=== PATIENT | female | born 1940 | race Caucasian/White ===

== ENCOUNTER 2017-10-25 21:38 | Emergency (ER) | payer MEDICARE, BC ==
[~2017-10-25 21:38] MED LIST: Iopamidol 370 76% 100 ML VIAL ONE
[2017-10-25 22:37] LABS: #Basophils 0.2 thou/uL (0.0-0.2); #Eosinphils 0.3 thou/uL (0.0-0.7); #Monocytes 0.8 thou/uL (0.11-0.59); #Neutrophils 5.4 thou/uL (1.40-6.50); %Basophils 1.9 % (0.0-1.0); %Eosinophils 3.5 % (0.0-10.0); %Lymphocytes 22.9 % (21.0-51.0); %Neutrophils 62.8 % (42.0-75.0); Hemoglobin 12.6 g/dL (12.0-16.0); Mean Corpuscular HGB CONC 34.4 g/dL (32.0-36.0); Mean Corpuscular Hemoglobin 31.5 pg (27.0-31.0); Mean Corpuscular Volume 91.6 fl (81.0-99.0); Mean Platelet Volume 8.2 fL (7.4-10.4); Platelet Count 188 thou/uL (130-400); RBC Distribution Width 11.2 % (11.5-14.5); White Blood Cell (WBC) Count 8.7 thou/uL (4.8-10.8)
[2017-10-25 22:55] LABS: Anion Gap 17 mmol/L (10-20); BUN (Urea Nitrogen) 13 mg/dL (9.8-20.1); Calc. Creatinine Clearance 0 mL/min (70-130); Calcium 9.5 mg/dL (7.8-10.44); Carbon Dioxide 20 mmol/L (23-31); Chloride 108 mmol/L (98-107); Estimated GFR-MDRD 68; Glucose 100 mg/dL (83-110); Potassium 4.4 mmol/L (3.5-5.1); Sodium 141 mmol/L (136-145)
--- NOTE | 2017-10-25 22:58 | CT ---
CT OF HEAD NONCONTRAST 10/25/17 CLINICAL HISTORY: Fall with head injury. FINDINGS: The ventricular system is age appropriate in size. There is no intracranial hemorrhage, mass effect o r midline shift. Parieto-occipital scalp hematoma is present. No calvarial fracture or pneumocephalus . IMPRESSION: 1. No acute intracranial hemorrhage or mass effect. 2. Posterior scalp hematoma. POS: C
--- NOTE | 2017-10-25 23:48 | CT ---
CERVICAL SPINE CT NONCONTRAST 10/25/17 INDICATION: Neck injury and pain related to fall. FINDINGS: There is no evidence of acute cervical spine fracture or subluxation. The craniocervical junction is intact. There is moderate multilevel degenerative changes of the cervical spine with associated strai ghtening of the normal cervical curvature. There is trace spondylolisthesis of C2-3 level. Degenerati ve hypertrophy of C1-2 is present. Incidental note in lucencies of the occipital calvarium favoring arachnoid granulations. IMPRESSION: 1. There is no acute fracture of the cervical spine. 2. Prominent multilevel degenerative change present. 3. Multifocal incidental calvarial lucencies at the occiput favoring arachnoid granulations. POS: C
--- NOTE | 2017-10-26 07:08 | CT ---
CT ABDOMEN AND PELVIS WITH IV CONTRAST CT SCAN LUMBAR SPINE: Date: 10/25/17 HISTORY: Patient fell while walking and complains of low back pain. Patient has history of abnormalities in th e liver and pancreas on prior studies and patient also requests these areas be reevaluated. COMPARISON: CT scans of the abdomen obtained at [facility] [place] on 10/24/[address] scan of abdomen and pelvis obtained at [facility] [place] on 10/06/15. FINDINGS: There are linear areas of mild scarring at each lung base. Lung bases are otherwise clear. The previously described tiny, less than 5.0 mm, hypodense lesions within right hepatic lobe are agai n seen and stable from the prior study, as well as study in 2015, suggesting a benign finding. The ramos bcentimeter low density focus within the uncinate process of the pancreas is also again seen and stab le when compared to the prior studies, including study in 2015. This appears to represent a fat densi ty and also likely represents a benign finding given stability over this period of time. Post cholecystectomy changes are noted. Splenic granulomata are again present. There is mild scarring involving the mid portion of the right kidney. There is a stable subcentimeter hypodense lesion in the left kidney. Kidneys otherwise have a normal CT appearance. Bilateral adrenal glands and opacified bowel have a normal CT appearance. Urinary bladder is incompletely distended. Penaloza of the urinary bladder do appear mildly thickened, b ut this is probably attributable to incomplete distention. Uterus is not visualized, probably related to prior hysterectomy. There is a small to moderate amount of retained fecal material seen throughout the colon suggesting c onstipation. No free fluid or free intraperitoneal gas is seen in the abdomen or pelvis. Vascular calcifications seen in the abdominal aorta. Metallic densities are seen at the pubic symphysis with prominent degenerative changes in the pubic s ymphysis. CT LUMBAR SPINE: There are multilevel degenerative changes seen within the lower thoracic, as well as involving the adriana mbar spine, with prominent end plate degenerative changes at L1-2 and L2-3 levels, and to a lesser ex tent at the L4-5 level. There is Grade I anterolisthesis of L4 on L5 likely related to the prominent facet degenerative changes at this level. The vertebral body heights are within normal limits, and no fracture is visualized. There is right convex scoliosis of the lumbar spine. There is moderate narro wing of the central spinal canal at the L4-5 level with moderate to severe bilateral neural foraminal narrowing. IMPRESSION: 1. No acute findings are seen in the abdomen or pelvis. 2. Small hiatal hernia. 3. Stable subcentimeter hypodense lesions in the right hepatic lobe, likely related to benign findin gs given stability since 2014 and probably represent tiny hepatic cysts. 4. Stable tiny subcentimeter fat density lesion uncinate process of the pancreas, also likely relate d to benign finding given stability over this period of time. 5. Constipation. 6. Hysterectomy. 7. Multilevel degenerative changes of the lumbar spine with Grade I anterolisthesis of L4 on L5. 8. No fracture involving the lumbar spine. POS: ABIOLA
== END 2017-10-26 00:45 | disposition home or self-care (01) ==
LOC: SCSER 21:38
DX: S00.03XA Contusion of scalp, initial encounter (principal); S30.0XXA Contusion of lower back and pelvis, initial encounter; E03.9 Hypothyroidism, unspecified; K21.9 Gastro-esophageal reflux disease without esophagitis; M19.90 Unspecified osteoarthritis, unspecified site; W00.0XXA Fall on same level due to ice and snow, initial encounter; Y93.01 Activity, walking, marching and hiking
CPT/HCPCS: 70450; 72125; 74177; 80048; 85025

== ENCOUNTER 2018-01-14 11:55 | Outpatient (CLI) | payer MEDICARE, BC | END 2018-01-14 11:56 | disposition home or self-care (01) | LOC: BICMAMMO 11:55 | PROVIDERS: ATTEND Obstetrics & Gynecology | DX: Z12.31 Encounter for screening mammogram for malignant neoplasm of breast (principal) | CPT/HCPCS: 77063; 77067 ==

== ENCOUNTER 2019-01-07 14:02 | Outpatient (CLI) | payer MEDICARE, BC ==
--- NOTE | 2019-01-07 15:44 | BD ---
DEXA BONE MINERAL DENSITY STUDY: HISTORY: Osteoporosis. COMPARISON: None. FINDINGS: Lumbar Spine: BMD (g/cm2) L1 0.988 T-Score: 0.0 2.2 L2 1.161 T-Score: 1.2 3.7 L3 0.961 T-Score:-1.3 1.5 L4 1.051 T-Score:-0.1 2.6 L1-L4 1.041 T-Score:-0.1 2.5 WHO classification is normal. Femoral Neck: 0.619 T-Score:-2.1 0.1 Total Femur: 0.788 T-Score:-1.3 0.6 WHO classification osteopenia. The FRAX score is not reported as the patient has been treated for os teoporosis. Impression: Osteopenia to the left femoral neck and total left hip. The bone mineral density is spuriously eleva stacia of the lumbar spine due to degenerative changes. POS: C
== END 2019-01-07 14:03 | disposition home or self-care (01) ==
LOC: BICMAMMO 14:02
PROVIDERS: ATTEND Internal Medicine
DX: M81.0 Age-related osteoporosis without current pathological fracture (principal); M85.89 Other specified disorders of bone density and structure, multiple sites
CPT/HCPCS: 77080

== ENCOUNTER 2019-01-15 13:27 | Outpatient (CLI) | payer MEDICARE, BC ==
--- NOTE | 2019-01-15 13:51 | MMO ---
Bilateral MAMMO Bilat Screen DDI+JOSE. CLINICAL HISTORY: Patient is 78 years old and is seen for screening. The patient has no family history of breast cancer. The patient has no personal history of cancer. The patient has a history of right Excisional Biopsy in 1956 - benign, right Excisional Biopsy in 1983 - benign and left Excisional Biopsy in 1964 - benign. VIEWS: The views performed were: bilateral craniocaudal with tomosynthesis and bilateral mediolateral oblique with tomosynthesis. FILMS COMPARED: The present examination has been compared to prior imaging studies performed at [facility] on 06/03/2003, 06/03/2004, 06/16/2005, 06/19/2006, 07/18/2007, 07/21/2008, 07/22/2009, 07/25/2010, 07/28/2010, 07/25/2011, 08/06/2012, 09/11/2014, 10/06/2015, 10/24/2016 and 01/14/2018, and at [facility] on 06/06/1999, 06/16/1999, 04/30/2000 and 04/21/2002. MAMMOGRAM FINDINGS: There are scattered fibroglandular densities. There are benign appearing calcifications seen in both breasts. There are also vascular calcifications. There are no suspicious masses, suspicious calcifications, or new areas of architectural distortion. IMPRESSION: THERE IS NO MAMMOGRAPHIC EVIDENCE OF MALIGNANCY. A ROUTINE FOLLOW-UP MAMMOGRAM IN 1 YEAR IS RECOMMENDED. THE RESULTS OF THIS EXAM WERE SENT TO THE PATIENT. ACR BI-RADS Category 2 - Benign finding MAMMOGRAPHY NOTE: 1. A negative mammogram report should not delay a biopsy if a dominant of clinically suspicious mass is present. 2. Approximately 10% to 15% of breast cancers are not detected by mammography. 3. Adenosis and dense breasts may obscure an underlying neoplasm.
== END 2019-01-15 13:28 | disposition home or self-care (01) ==
LOC: BICMAMMO 13:27
PROVIDERS: ATTEND Obstetrics & Gynecology
DX: Z12.31 Encounter for screening mammogram for malignant neoplasm of breast (principal)
CPT/HCPCS: 77063; 77067

== ENCOUNTER 2019-03-07 19:44 | Inpatient (IN) | payer MEDICARE, BC ==
[2019-03-07] MEDS ORDERED: Ondansetron PF 4 MG/2 ML Vial ONE (20:07)
[2019-03-07 20:18] LABS: #Basophils 0.1 thou/uL (0.0-0.2); #Eosinphils 0.3 thou/uL (0.0-0.7); #Lymphocytes 1.6 thou/uL (1.20-3.40); #Monocytes 0.7 thou/uL (0.11-0.59); #Neutrophils 5.2 thou/uL (1.40-6.50); %Basophils 1.1 % (0.0-1.0); %Lymphocytes 20.2 % (21.0-51.0); %Monocytes 9.3 % (0.0-10.0); %Neutrophils 65.5 % (42.0-75.0); Hemoglobin 13.3 g/dL (12.0-16.0); Mean Corpuscular Hemoglobin 31.6 pg (27.0-31.0); Mean Platelet Volume 8.5 fL (7.4-10.4); Platelet Count 163 thou/uL (130-400); RBC Distribution Width 11.7 % (11.5-14.5); Red Blood Cell (RBC) Count 4.19 mill/uL (4.20-5.40); White Blood Cell (WBC) Count 7.9 thou/uL (4.8-10.8)
--- NOTE | 2019-03-07 20:19 | RAD ---
EXAM: Single view of the chest HISTORY: Altered mental status COMPARISON: 02/21/2017 FINDINGS: Single view of the chest shows a normal sized cardiomediastinal silhouette. There is no michael dence of consolidation, mass, or pleural effusion. The bones are unremarkable. IMPRESSION: No evidence of acute cardiopulmonary disease
[2019-03-07 20:28] LABS: INR-International Normal Ratio 0.9; PTT 29.2 SEC (22.9-36.1); Prothrombin Time 12.6 SEC (12.0-14.7)
--- NOTE | 2019-03-07 20:30 | CT ---
EXAM: CT brain without contrast HISTORY: Fall with head trauma COMPARISON: 10/25/2017 TECHNIQUE: Multiple contiguous axial images were obtained and a CT of the brain without contrast. FINDINGS: There is a small amount of hyperdensity in the anterior aspect of the right middle cranial fossa which may represent a temporal contusion and/or a small amount of subdural hemorrhage. There is no evidence of hydrocephalus. Soft tissue swelling is seen in the left posterior scalp. The underlying calvarium is unremarkable. T he visualized paranasal sinuses and mastoid air cells are well aerated. IMPRESSION: Possible right temporal contusion and/or subdural hematoma.
--- NOTE | 2019-03-07 20:31 | CT ---
EXAM: CT of the cervical spine without contrast HISTORY: Fall with neck pain COMPARISON: 10/25/2017 TECHNIQUE: Multiple contiguous axial images were obtained in a CT of the cervical spine without contr ast. Sagittal and coronal reformats were performed. FINDINGS: The vertebral bodies demonstrate normal height and alignment without fracture or subluxatio n. Moderate degenerative changes are seen throughout cervical spine with intervertebral disc space narrowing and small surrounding osteophytes. No prevertebral soft tissue swelling is seen. The posterior facets are well aligned. Normal alignment of the skull base with the cervical spine is seen. The lung apices are unremarkable. Calcifications are seen in the carotid arteries. IMPRESSION: Degenerative changes without evidence of acute osseous abnormality of the cervical spine.
[2019-03-07 20:39] LABS: ALT (SGPT) 15 U/L (8-55); AST (SGOT) 22 U/L (5-34); Albumin 4.6 g/dL (3.4-4.8); Alkaline Phosphatase 79 U/L (40-150); Anion Gap 16 mmol/L (10-20); BUN (Urea Nitrogen) 17 mg/dL (9.8-20.1); Bilirubin, Total 0.4 mg/dL (0.2-1.2); CK (CPK) 145 U/L (29-168); Calc. Creatinine Clearance 0 mL/min (70-130); Carbon Dioxide 25 mmol/L (23-31); Chloride 103 mmol/L (98-107); Estimated GFR-MDRD 35; Globulin 2.5 g/dL (2.4-3.5); Glucose 92 mg/dL (83-110); Potassium 4.1 mmol/L (3.5-5.1); Protein, Total 7.1 g/dL (6.0-8.3); Sodium 140 mmol/L (136-145)
[2019-03-07] MEDS ORDERED: Fentanyl 100 MCG/2 ML VIAL ONE (21:36)
[2019-03-07 21:46] LABS: Bilirubin Negative (Negative); Blood, Urine Negative (Negative); Clarity CLEAR (Clear); Glucose, Urine (Dipstick) Negative (Negative); Leukocyte Negative (Negative); Nitrite Negative (Negative); Protein, Urine (Dipstick) Negative (Neg-Trace); Specific Gravity, Urine 1.007 (1.002-1.036); Urobilinogen 0.2 mg/dL (0.2-1.0)
[2019-03-07] MEDS ORDERED: hydrALAZINE 20 MG/ML VIAL SLOW IVP PRN (22:19)
[2019-03-07] MEDS ORDERED: Dextrose 50% Abboject 50 ML SYRINGE SLOW IVP PRN (22:19)
[2019-03-07] MEDS ORDERED: Ondansetron ODT 4 MG TAB PO PRN (22:19)
[2019-03-07] MEDS ORDERED: Ondansetron PF 4 MG/2 ML Vial IVP PRN (22:19)
[2019-03-07] MEDS ORDERED: Dextrose 5% in Water 1,000 ML IV PRN (22:19)
[2019-03-07] MEDS ORDERED: traMADol HCl 50 MG TAB PO PRN (22:25)
[2019-03-07] MEDS ORDERED: Sodium Chloride 0.9% 1,000 ML IV SCH (22:45)
[2019-03-08 00:01] VITALS: BMI 25.0
[2019-03-08] MEDS: Acetaminophen 500 MG TAB PO SCH ×3 (00:06→10:57)
--- NOTE | 2019-03-08 01:12 | HP ---
REQUESTING: Cecy Almanzar NP ATTENDING SURGEON: Jacobo Camacho MD CONSULT: Neurosurgery. SUBJECTIVE: This is a 78-year-old female who presented to the emergency room status post a ground level fall. The patient does not remember the fall. The patient denies being dizzy, short of breath, or having chest pain prior to falling. The patient with recent right foot surgery 3 weeks ago and history of left knee pain needing a left knee replacement. The patient was found by a family member altered. The patient again has no recall of falling or why she fell. The patient complained of severe head pain and neck pain status post fall. The patient also had nausea and vomiting after the fall. Family states the patient was confused, but is now back to baseline. PAST MEDICAL HISTORY: Irregular heartbeat, acid reflux, GERD, hypothyroidism, arthritis, and hypertension. PAST SURGICAL HISTORY: Cholecystectomy, hysterectomy, tonsillectomy, and right foot surgery. SOCIAL HISTORY: Denies any alcohol use, denies drug use, denies history of smoking. ALLERGIES: REPORTS A RASH WITH TYLENOL WITH CODEINE AND SULFA DRUGS. CURRENT MEDICATIONS: Nexium, metoprolol, Lexapro and Celebrex. REVIEW OF SYSTEMS: A 10-point review of systems is negative unless otherwise indicated in the above HPI. OBJECTIVE: VITAL SIGNS: Blood pressure 168/66, temperature 97.8, respirations 18, pulse 70, and SpO2 96% on room air. GENERAL: The patient is awake, alert, lying in hospital bed, elderly, well-appearing female. HEENT: Contusion and swelling to the occipital area, skin intact, no lacerations, softball size hematoma to the posterior scalp. No Bergman sign, no raccoon eyes, pupils equal and reactive at 3 mm, bright bilateral, no extraocular movements, mucous membranes are moist, teeth are normal, trachea is midline, no posterior cervical tenderness, normal range of motion. RESPIRATORY: Regular respirations, nonlabored, bilateral breath sounds clear to auscultation, no wheezing, rales or rhonchi. CARDIOVASCULAR: Regular rate and rhythm, no heart murmur noted. No pedal edema. ABDOMEN: Soft, nontender, nondistended, positive active bowel sounds. EXTREMITIES: Right lower extremity with walking boots in place. Left knee brace in place. Positive distal pulses 2+ in all extremities. No pedal edema. Strength 5/5 in all extremities. Normal sensation in all extremities. NEUROLOGIC: GCS is 15, the patient oriented to person, place, and time. The patient unaware of event. No focal motor deficits, no focal sensory deficits. SKIN: Normal skin exam. Skin is warm, dry, and intact. LABORATORY DATA: WBC 7.9, RBC 4.19, hemoglobin 13.3, hematocrit 39.0. PT 12.6 , INR 0.9, APTT 29.2. Sodium 140, potassium 4.1, chloride 103, BUN 17, creatinine 1.45, estimated GFR 35, glucose 92, calcium 10.0, total bilirubin 0.4, AST 22, ALT 15, alkaline phosphatase 79. CK 145, troponin less than 0.010. Urinalysis; negative for protein, negative for glucose, negative for nitrites, negative leukocyte esterase. DIAGNOSTIC DATA: 1. Brain CT: Impression; possible right temporal contusion and/or subdural hematoma. No evidence of hydrocephalus. 2. Cervical spine CT: Impression; degenerative changes without evidence of acute osseous abnormality of the cervical spine. 3. Chest x-ray, no evidence of acute cardiopulmonary disease. 4. EKG normal sinus rhythm, no ST-segment elevation, no T-wave abnormalities. IMPRESSION: 1. Status post ground level fall with positive loss of consciousness. 2. Possible right temporal contusion and/or subdural hematoma. PLAN: Neurosurgery has been consulted. We will get a repeat head CT at 0500 hours in the morning. We will do frequent neuro checks and obtain a CT sooner if any decline in neuro status. We will hold all NSAIDs at this time. Ice to contusion. Head of bed elevated. The plan has been discussed with the patient and the patient's family who agree. The plan will be discussed with the attending surgeon after this dictation. Job ID: [id number] [facility]
[2019-03-08 04:49] LABS: #Basophils 0.1 thou/uL (0.0-0.2); #Eosinphils 0.1 thou/uL (0.0-0.7); #Lymphocytes 1.6 thou/uL (1.20-3.40); #Monocytes 0.9 thou/uL (0.11-0.59); #Neutrophils 5.5 thou/uL (1.40-6.50); %Basophils 0.6 % (0.0-1.0); %Eosinophils 0.8 % (0.0-10.0); %Lymphocytes 19.3 % (21.0-51.0); %Monocytes 11.4 % (0.0-10.0); %Neutrophils 67.9 % (42.0-75.0); Hemoglobin 10.5 g/dL (12.0-16.0); Mean Corpuscular HGB CONC 34.1 g/dL (32.0-36.0); Mean Corpuscular Hemoglobin 31.9 pg (27.0-31.0); Mean Corpuscular Volume 93.6 fL (78.0-98.0); Mean Platelet Volume 8.4 fL (7.4-10.4); Platelet Count 139 thou/uL (130-400); RBC Distribution Width 11.8 % (11.5-14.5); Red Blood Cell (RBC) Count 3.31 mill/uL (4.20-5.40)
[2019-03-08 04:57] LABS: PTT 32.2 SEC (22.9-36.1); Prothrombin Time 13.5 SEC (12.0-14.7)
[2019-03-08 05:09] LABS: Phosphorus 3.7 mg/dL (2.3-4.7)
[2019-03-08 05:11] LABS: Anion Gap 11 mmol/L (10-20); BUN (Urea Nitrogen) 16 mg/dL (9.8-20.1); Calc. Creatinine Clearance 45 mL/min (70-130); Calcium 8.7 mg/dL (7.8-10.44); Carbon Dioxide 22 mmol/L (23-31); Chloride 109 mmol/L (98-107); Estimated GFR-MDRD 47; Glucose 85 mg/dL (83-110); Potassium 4.2 mmol/L (3.5-5.1); Sodium 138 mmol/L (136-145)
--- NOTE | 2019-03-08 07:12 | CT ---
CT OF HEAD NONCONTRAST: COMPARISON: Previous day. INDICATION: Intracranial hemorrhage, followup. FINDINGS: The prior minimal hyperdensity of the right middle cranial fossa has redistributed. There is a focal convex-shaped hyperdensity measuring 1.7 x 0.9 cm overlying the medial aspect of the posterior right cerebellar hemisphere. This approximates a focal calvarial lucency that may relate to a vascular proc ess, and there is an adjacent right occipital bone fracture. A small volume of dependent, layering h emorrhage is seen within the left occipital horn. Faint subarachnoid distribution of hyperdensity is seen at the bilateral parietotemporoal regions. There is mild extraaxial hyperdensity overlying the medial right frontal lobe, anteriorly. Large posterior scalp hematoma is present. IMPRESSION: 1. Findings which indicate a scattered, mild volume of progressive extraaxial hemorrhage with compon ent of redistribution from exam performed previous day. There is intraventricular hemorrhagic extens ion, mild in volume now localizing to the posterior, dependent aspect of the left occipital horn. 2. Focal, convex shaped extraaxial hyperdensity overlies the posterior, medial aspect of the right c erebellar hemisphere, adjacent a right occital bone fracture. There is also a small, subdural hemato ma overlying the anteromedial right frontal convexity, with adjacent subarachnoid hemorrhage. 3. Recommend continued short-term interval followup. POS: KEIRY
[2019-03-08 08:19] VITALS: TEMP 97.9
--- NOTE | 2019-03-08 10:15 | PRG ---
DATE OF SERVICE: 03/08/2019 I saw Krystal Arndt in our hospital room this morning. 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 Ms. Arndt has been wearing a boot on her foot and needs a knee replacement and has had mechanical difficulty with walking for a number of days to weeks. She feels like this was the reason for her fall, although she cannot remember it specifically. She did fall , she struck her head, and was brought to the emergency department, where CT examination reveals a right cerebellar contusion near the midline and perhaps some hyperdensity in the right frontal lobe. There is no mass effect and she was watched overnight. A repeat CT scan has been done this morning. Ms. Arndt feels fine. Her head is sore, which struck the ground, but she does not feel any ill effects as far as headache, incoordination, nausea or vomiting. There is no lateralized motor or sensory deficits, and she does not have any difficulty speaking. Her physician' s son is at the bedside. I reviewed her vitals and they seem stable to me. On examination, Ms. Arndt is wide awake. Her cranial nerves are working well. Her speech is fluent. There is no dysphasia. I do not want to appreciate any neglect or any lateralizing motor deficits. A followup CT scan done this morning shows the contusion in a more definitive manner than the first scan, but I do not think it is any different in size and this certainly no mass effect. The right frontal area seems a bit better on this scan than the original one, so perhaps my concern about a right frontal contusion was an overcall. My plan for today is to have Ms. Arndt proved to the nursing staff that she is safe with entering and exiting bed with dressing herself with walking with eating and with going to the bathroom. When she is safe for activities of daily living, she can be discharged. We went over the symptoms to watch for home care and followup. Followup arrangements in our office will be made for 2 to [address] weeks with [address] scan. Job ID: [id number] [facility]
[2019-03-08 10:17] LABS: Hemoglobin 10.3 g/dL (12.0-16.0); Mean Corpuscular HGB CONC 33.8 g/dL (32.0-36.0); Mean Corpuscular Hemoglobin 31.7 pg (27.0-31.0); Mean Corpuscular Volume 93.7 fL (78.0-98.0); Mean Platelet Volume 8.3 fL (7.4-10.4); Platelet Count 134 thou/uL (130-400); RBC Distribution Width 11.8 % (11.5-14.5); Red Blood Cell (RBC) Count 3.26 mill/uL (4.20-5.40); White Blood Cell (WBC) Count 6.7 thou/uL (4.8-10.8)
[2019-03-08 11:36] VITALS: BP 110/67
--- NOTE | 2019-03-08 13:18 | CON ---
DATE OF CONSULTATION: HISTORY OF PRESENT ILLNESS: Briefly, Ms. Arndt was brought to the emergency department last night following a syncopal episode. The patient is unsure of what happened. She is a 78-year-old female. 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 She was dressed for the occasion, but did not have any recollection of what happened. Son believes that she was cleaning a cooler and fell backward, striking her head on a concrete counter. She has a large hematoma on posterior aspect of her skull. In the emergency department, she was confused and had some nausea and vomiting. However, when I see her today, she is alert and oriented. She complains of mild headache and soreness over the hematoma posterior to her head. She still does not recall what happened to her yesterday; however, she is back to her normal per son. Neurosurgery was consulted for a possible subdural or occipital contusion. Possible workup for syncope has been done. When I see her, she is resting comfortably. She is alert and oriented. She is moving all 4 extremities well. There are no lateralizing deficits. REVIEW OF SYSTEMS: A 10-point review of systems has been completed and is negative other than stated in the above HPI. ALLERGIES: FLAGYL, LEVAQUIN, LEVOTHYROXINE, METRONIDAZOLE, AND SULFA. MEDICATIONS: 1. Nexium. 2. Levothyroxine. 3. Celebrex. 4. Metoprolol. PAST MEDICAL HISTORY: Cardiac history, irregular heart rate, hypothyroidism, acid reflux, arthritis. PAST SURGICAL HISTORY: Cholecystectomy, hysterectomy, and tonsillectomy. SOCIAL HISTORY: The patient denies alcohol, denies smoking or other illicit drug use. PHYSICAL EXAMINATION: VITAL SIGNS: Temperature 97.9, heart rate 63, blood pressure 108/64, respirations 16, and O2 saturation 97% on room air. CONSTITUTIONAL: Well appearing, well nourished, alert, normotensive, afebrile, in no visible distress. HEENT: Head is normocephalic. There is a large hematoma to posterior skull. Pupils are equal, round, and reactive to light. Extraocular movements are intact. Hearing intact. Moist mucous membranes. RESPIRATIONS: Normal work of breathing on room air. Symmetric chest rise. EXTREMITIES: Normal range of motion and strength bilaterally in deltoids, biceps, triceps, learn to swim instructor strength, hip flexion, knee flexion, hip extension, dorsi and plantar flexion. NEUROLOGIC: The patient is awake, alert, and oriented x3. She has normal attention and concentration. Speech is spontaneous and fluent. Cranial nerves II through XII are tested and intact. There are no lateralizing sensory or motor deficits. No drift or asymmetry with [id number] exercises. IMAGING DATA: This morning, CT head indicates a cerebellar contusion. ASSESSMENT AND PLAN: From a neurosurgical standpoint, Ms. Arndt is a 78-year-old female. She has sustained a cerebellar contusion. Her neuro exam is stable and she is alert and oriented. There are no lateralizing deficits noted. When she is safe for activities of daily living, she can be discharged. She has her son at home who can watch her and she should follow up with her local physician. Job ID: [id number]
--- NOTE | 2019-03-08 22:01 | DIS ---
DATE OF ADMISSION: 03/07/2019 DATE OF DISCHARGE: 03/08/2019 ADMITTING DIAGNOSIS: Minor closed head injury. DISCHARGE DIAGNOSIS: Minor closed head injury. PROCEDURES: None. HISTORY OF PRESENT ILLNESS: The patient is a 78-year-old admitted after a fall. She recently had ankle and foot surgery and was in a walking boot, she tripped and fell. She did have loss of consciousness. She has been cleared by Neurosurgery for discharge to home. She has evidence of potential mild subarachnoid hemorrhage, although no significant change on repeat CT. Dr. Kraus has evaluated her and cleared her for discharge. She is being discharged home after PT evaluates her this morning. Follow up with her primary care physician. Job ID: [id number]
== END 2019-03-08 11:49 | disposition home or self-care (01) | DRG 84 ==
LOC: ERS 19:44 → 2SE 22:54
PROVIDERS: ADMIT Surgery; ATTEND Surgery
DX: S06.6X9A Traumatic subarachnoid hemorrhage with loss of consciousness of unspecified duration, initial encounter (principal); K21.9 Gastro-esophageal reflux disease without esophagitis; M19.91 Primary osteoarthritis, unspecified site; E03.9 Hypothyroidism, unspecified; I10 Essential (primary) hypertension; W01.0XXA Fall on same level from slipping, tripping and stumbling without subsequent striking against object, initial encounter; Y92.009 Unspecified place in unspecified non-institutional (private) residence as the place of occurrence of the external cause; Z88.5 Allergy status to narcotic agent; Z88.2 Allergy status to sulfonamides; Z90.49 Acquired absence of other specified parts of digestive tract; Z90.710 Acquired absence of both cervix and uterus; Z90.89 Acquired absence of other organs
CPT/HCPCS: 36415; 70450; 71045; 72125; 80048; 80053; 81003; 82550; 83735; 84100; 84484; 85025; 85610; 85730; 93005; J2405; J3010

== ENCOUNTER 2019-03-31 13:41 | Outpatient (CLI) | payer MEDICARE, BC ==
--- NOTE | 2019-03-31 14:45 | CT ---
CT BRAIN WITHOUT CONTRAST: Date: 03/31/19 HISTORY: Subdural hematoma. Memory problems. Hearing loss. COMPARISON: 03/08/19 and 03/07/19. FINDINGS: The intracranial hemorrhage seen on the previous studies has resolved in the interim. No evidence of acute infarct, hemorrhage, midline shift, or abnormal extra-axial fluid collections are seen. The lynda tricular size is appropriate and the basilar cisterns are patent. The bony calvarium is intact. The v isualized paranasal sinuses and mastoid air cells are well aerated. The previously noted left posteri or scalp hematoma shows significant interval improvement. IMPRESSION: No CT evidence of acute intracranial process. POS: OFF
== END 2019-03-31 13:42 | disposition home or self-care (01) ==
LOC: SCSCT 13:41
PROVIDERS: ATTEND Neurological Surgery
DX: I62.00 Nontraumatic subdural hemorrhage, unspecified (principal)
CPT/HCPCS: 70450

== ENCOUNTER 2019-05-13 13:36 | Outpatient (CLI) | payer MEDICARE, BC ==
--- NOTE | 2019-05-13 13:50 | RAD ---
EXAM: Chest 2 views: HISTORY: Dyspnea COMPARISON: 02/21/2017 FINDINGS: There is a normal-sized cardiomediastinal silhouette. There is no evidence of consolidation, mass, or pleural effusion. Degenerative changes are seen in the spine. IMPRESSION: No evidence of acute cardiopulmonary disease
== END 2019-05-13 13:37 | disposition home or self-care (01) ==
LOC: RAD 13:36
PROVIDERS: ATTEND Internal Medicine Critical Care Medicine
DX: R06.00 Dyspnea, unspecified (principal)
CPT/HCPCS: 71046

== ENCOUNTER 2019-12-22 12:05 | Inpatient (IN) | payer MEDICARE, BC ==
[~2019-12-22 12:05] MED LIST changes: +Dexamethasone 20 MG/5 ML VIAL ONE; +Glycopyrrolate 0.2 MG/ML 5 ML SYRINGE ONE; -Iopamidol 370 76% 100 ML VIAL ONE; +Lidocaine 1% PF 5 ML VIAL ONE; +Ondansetron PF 4 MG/2 ML Vial ONE; +PHENYLEPHRINE-NS 100 MCG/ML 10 ML SYRINGE ONE; +PROPOFOL 200 MG/20 ML VIAL ONE; +Rocuronium Bromide 10 MG/ML (10ML VIAL) ONE
[2019-12-22] MEDS ORDERED: Ondansetron PF 4 MG/2 ML Vial ONE (12:50)
[2019-12-22] MEDS ORDERED: Morphine 4 MG/ML VIAL ONE ×2 (12:50→16:19)
[2019-12-22] MEDS ORDERED: Fentanyl 100 MCG/2 ML VIAL ONE ×4 (13:11→22:25)
--- NOTE | 2019-12-22 13:35 | RAD ---
AP view of the pelvis INDICATION: History of fall with left hip pain COMPARISON: None. FINDINGS: Bones: There is a medially displaced subcapital left femoral neck fracture with varus malalignment Hips: There is mild degenerative arthrosis of the right and left hip SI joints and symphysis pubis: Normal appearing. Intrapelvic contents: Small surgical clips are seen within the lower central pelvis. IMPRESSION: Displaced subcapital left femoral neck fracture.
--- NOTE | 2019-12-22 13:39 | RAD ---
XR Hip Lt 2-3 View INDICATION: Left hip pain after fall COMPARISON: None FINDINGS: Bones: There is a posterior medially displaced subcapital left femoral neck fracture with mild to mod erate varus malalignment Hip joint: There is mild degenerative arthrosis of the left hip SI joints and symphysis pubis: Radiographically normal. Intrapelvic contents: Visualized bowel gas pattern is within normal limits. Surrounding soft tissues: There are surgical clips within the lower hemipelvis. IMPRESSION: 1. Displaced left subcapital femoral neck fracture.
[2019-12-22 14:18] LABS: Bacteria/HPF None Seen HPF (None Seen); Bilirubin Negative (Negative); Blood, Urine Negative (Negative); Clarity Clear (Clear); Glucose, Urine (Dipstick) Normal (Negative); Leukocyte 25 Leu/uL (Negative); Nitrite Negative (Negative); Protein, Urine (Dipstick) Negative (Neg-Trace); RBC/HPF 0-3 HPF (0-3); Squamous Epithelial 0-3 HPF (0-3); Urobilinogen Normal mg/dL (Less than 2); WBC/HPF 0-3 HPF (0-3)
[2019-12-22] MEDS ORDERED: Ketorolac Tromethamine 30 MG/ML VIAL ONE (14:28)
[2019-12-22] MEDS ORDERED: Cyclobenzaprine 10 MG TAB ONE (14:34)
[2019-12-22] MEDS ORDERED: traMADol HCl 50 MG TAB ONE (14:34)
[2019-12-22] MEDS ORDERED: Acetaminophen 500 MG TAB ONE (14:34)
[2019-12-22] MEDS ORDERED: Dextrose 50% Abboject 50 ML SYRINGE SLOW IVP PRN (14:40)
[2019-12-22] MEDS ORDERED: hydrALAZINE 20 MG/ML VIAL SLOW IVP PRN (14:40)
[2019-12-22] MEDS ORDERED: Ondansetron PF 4 MG/2 ML Vial IVP PRN (14:40)
[2019-12-22] MEDS ORDERED: Dextrose 5% in Water 1,000 ML IV PRN (14:40)
[2019-12-22] MEDS ORDERED: Ondansetron ODT 4 MG TAB PO PRN (14:40)
[2019-12-22 14:44] LABS: #Basophils 0.1 thou/uL (0.0-0.2); #Eosinphils 0.1 thou/uL (0.0-0.7); #Lymphocytes 1.4 thou/uL (1.20-3.40); #Monocytes 0.7 thou/uL (0.11-0.59); #Neutrophils 6.7 thou/uL (1.40-6.50); %Basophils 0.6 % (0.0-1.0); %Eosinophils 1.6 % (0.0-10.0); %Lymphocytes 15.8 % (21.0-51.0); %Monocytes 7.4 % (0.0-10.0); %Neutrophils 74.6 % (42.0-75.0); Hemoglobin 12.2 g/dL (12.0-16.0); Mean Corpuscular HGB CONC 33.6 g/dL (32.0-36.0); Mean Corpuscular Hemoglobin 31.1 pg (27.0-31.0); Mean Corpuscular Volume 92.6 fL (78.0-98.0); Mean Platelet Volume 9.3 fL (7.4-10.4); Platelet Count 157 thou/uL (130-400); RBC Distribution Width 12.3 % (11.5-14.5); Red Blood Cell (RBC) Count 3.91 mill/uL (4.20-5.40); White Blood Cell (WBC) Count 8.9 thou/uL (4.8-10.8)
[2019-12-22] MEDS ORDERED: Rib Fracture Protocol IV SCH (14:45)
[2019-12-22] MEDS ORDERED: traMADol HCl 50 MG TAB PO PRN (14:45)
[2019-12-22] MEDS ORDERED: Rib Fracture Protocol PO SCH (14:45)
[2019-12-22] MEDS ORDERED: Sodium Chloride 0.9% 1,000 ML IV SCH (14:45)
[2019-12-22 14:50] LABS: PTT 30.5 SEC (22.9-36.1); Prothrombin Time 12.7 SEC (12.0-14.7)
--- NOTE | 2019-12-22 14:59 | RAD ---
Chest AP view INDICATION: Fall with chest pain COMPARISON: May 13, 2019 FINDINGS: Lungs: Bilateral emphysematous changes stable appearing. Spiculated nodular opacity the right upper lobe has become slightly more prominent. Cardiac silhouette: Stable mild cardiomegaly is present. Pulmonary vasculature: Normal Pleural spaces: No pleural effusion or pneumothorax is demonstrated. Upper abdomen: No abnormality seen. Osseous structures: No acute osseous abnormality. Additional findings: Surgical clips within the right upper quadrant of the abdomen IMPRESSION: Enlarging spiculated nodule opacity of the right upper lobe. Dedicated CT of the thorax is recommende d. No additional acute abnormality.
[2019-12-22 15:11] LABS: ALT (SGPT) 20 U/L (8-55); AST (SGOT) 29 U/L (5-34); Albumin 4.2 g/dL (3.4-4.8); Alkaline Phosphatase 64 U/L (40-110); Anion Gap 14 mmol/L (10-20); BUN (Urea Nitrogen) 10 mg/dL (9.8-20.1); Bilirubin, Total 0.6 mg/dL (0.2-1.2); Calc. Creatinine Clearance 0 mL/min (70-130); Calcium 9.4 mg/dL (7.8-10.44); Carbon Dioxide 22 mmol/L (23-31); Chloride 108 mmol/L (98-107); Estimated GFR-MDRD 54; Globulin 2.2 g/dL (2.4-3.5); Glucose 71 mg/dL (83-110); Potassium 4.2 mmol/L (3.5-5.1); Protein, Total 6.4 g/dL (6.0-8.3); Sodium 140 mmol/L (136-145)
[2019-12-22 15:11] LABS: Magnesium 1.8 mg/dL (1.6-2.6); Phosphorus 2.4 mg/dL (2.3-4.7)
[2019-12-22] MEDS ORDERED: Cyclobenzaprine 10 MG TAB PO PRN (15:30)
[2019-12-22] MEDS ORDERED: Magnesium 2 GM/50 ML 2 GM in Premix Bag 1 BAG IVPB SCH ×2 (15:45→18:30)
[2019-12-22] MEDS ORDERED: Morphine 2 MG/ML SYRINGE SLOW IVP PRN (16:41)
--- NOTE | 2019-12-22 17:34 | CON ---
DATE OF CONSULTATION: REQUESTING PHYSICIAN: Rai Nicolas DO CONSULTING PHYSICIAN: Romeo Lion MD REASON FOR CONSULTATION: Left hip fracture. BRIEF CLINICAL HISTORY: Krystal is a 79-year-old female, who apparently had a ground level fall earlier this morning, landing on her left hip. Immediate onset of pain was noted and EMS was dispatched. The patient presented to the emergency room where plain radiographs demonstrated a varus impacted shortened left femoral neck fracture. Our service has been consulted for definitive orthopedic management of this problem. PAST MEDICAL HISTORY: Significant for irregular heart beat occasionally, hypothyroidism, gastroesophageal reflux disease, and arthritis. PAST SURGICAL HISTORY: She has had a left total knee arthroplasty, hysterectomy, cholecystectomy, tonsillectomy. MEDICATIONS: Toprol, Xanax, Lexapro, Wellbutrin, Celebrex, levothyroxine. ALLERGIES: THE PATIENT CLAIMS BACTRIM, FLAGYL, LEVAQUIN. SHE DENIES ANY CONTACT ALLERGIES. SOCIAL HISTORY: She denies any ethanol, tobacco, illicit drug abuse. PHYSICAL EXAMINATION: GENERAL: Well-nourished, well-developed female, appearing her stated age, in no apparent distress or discomfort. HEENT: Head is normocephalic, atraumatic. Pupils equally round, reactive to light. Oropharynx is benign. CHEST: Clear to auscultation. HEART: Regular rate and rhythm. EXTREMITIES: No clubbing, cyanosis, or edema. Left lower extremity is shortened and externally rotated relative to the right. Range of motion is not assessed due to known underlying fracture. IMAGING STUDIES: To the left hip demonstrates a varus impacted shortened left femoral neck fracture. IMPRESSION: Left hip femoral neck fracture. PLAN: 1. The risks, benefits, options, alternatives, and rationale for proceeding with left hip hemiarthroplasty has been explained in great detail with the patient. She is ready to proceed. All questions were answered. No guarantee of outcome stated or implied. 2. Please see orders. Job ID: [id number]
[2019-12-22] MEDS ORDERED: Ketorolac Tromethamine 30 MG/ML VIAL IVP SCH (18:00)
[2019-12-22] MEDS ORDERED: traMADol HCl 50 MG TAB PO SCH (18:00)
[2019-12-22] MEDS ORDERED: Acetaminophen 500 MG TAB PO SCH (18:00)
[2019-12-22 18:17] VITALS: BMI 24.4
[2019-12-22] MEDS: traMADol HCl 50 MG TAB PO SCH ×2 (18:25→21:50)
--- NOTE | 2019-12-22 18:29 | HP ---
REQUESTING PHYSICIAN: Jacobo Shook MD ATTENDING PHYSICIAN: Rai Nicolas DO CONSULTS: Orthopedic Surgery, Dr. Loin. CHIEF COMPLAINT: Mechanical fall. HISTORY OF PRESENT ILLNESS: This is a 79-year-old female, who presented to the emergency room after a ground level fall. The patient reports her shoe caught on the tile when she had breakfast in her hands and caused her to fall landing onto her left hip. The patient denies hitting her head. The patient denies any loss of consciousness. The patient denies any chest pain, shortness of breath or dizziness prior to tripping and falling. The patient had a fall with a skull fracture and subdural hematoma in February of 2019. PAST MEDICAL HISTORY: Irregular heartbeat, acid reflux, GERD, hypothyroidism, hypertension, and arthritis. PAST SURGICAL HISTORY: Cholecystectomy, hysterectomy, tonsillectomy, right foot surgery, knee replacement. ALLERGIES: SULFA, BACTRIM, CODEINE CAUSES RASH. ALSO LEVAQUIN, METRONIDAZOLE. SOCIAL HISTORY: Drinks occasionally, no drug use. No history of smoking. CURRENT MEDICATIONS: 1. Nexium 40 mg daily. 2. Levothyroxine 112 mcg daily. 3. Celebrex 400 at bedtime. 4. Metoprolol 50 mg at bedtime. 5. Xanax 0.25 mg. 6. Lexapro 20 mg. 7. Wellbutrin 100 mg daily. REVIEW OF SYSTEMS: A 10-point review of systems is negative unless otherwise indicated in the above HPI. PHYSICAL EXAMINATION: VITAL SIGNS: Blood pressure 114/57, pulse 92, respirations 18, temperature 98.2, SpO2 96% on room air. GENERAL: Well-appearing elderly female, no acute distress, lying in hospital bed. HEENT: Head is atraumatic and normocephalic, equal pupils bilateral, mucous membranes are moist, midface stable. NECK: Normal range of motion. Trachea midline. No cervical spine tenderness. RESPIRATORY: Equal chest rise and fall, bilateral breath sounds clear. No wheezing, rales, or rhonchi, moderate pain to left shoulder. ABDOMEN: Soft, nontender, nondistended. EXTREMITIES: Moves all extremities, left hip tender to palpation, distal pulses 2+, sensation and movement intact. NEUROLOGIC: GCS 15. No focal deficit. Normal range of motion of left arm, no obvious deformity to the left shoulder. LABORATORY DATA: WBC 8.9, RBC 3.91, hemoglobin 12.2, hematocrit 36.2, platelets 157. Sodium 140, potassium 4.2, chloride 108, carbon dioxide 22, BUN 10, creatinine 1.00, estimated GFR 54, glucose 71, calcium 9.4, phosphorus 2.4, magnesium 1.8. AST 29, ALT 20, alkaline phos 64, troponin I less than 0.010, albumin 4.2. Urinalysis negative for UTI. 12-lead EKG, sinus rhythm with nonspecific T-wave abnormality. DIAGNOSTICS: 1. Pelvis x-ray, impression; displaced subcapital left femoral neck fracture. 2. Left hip x-ray, impression; displaced left subcapital femoral neck fracture. 3. Chest x-ray, impression; enlarging spiculated nodule opacity of the right upper lobe. Dedicated CT of the thorax is recommended. No additional acute abnormalities. ASSESSMENT: 1. Status post mechanical fall from standing. 2. Left displaced subcapital femoral neck fracture. 3. Acute traumatic pain. 4. Left shoulder contusion. 5. Incidental finding of right upper lobe enlarging nodule. 6. History of arthritis, hypertension, irregular heartbeat, hypothyroidism, gastroesophageal reflux disease, anxiety and depression. 7. Likely fungal infection to the lower abdomen. PLAN: Admit to the surgical floor. The patient will be n.p.o. with plans for Orthopedic Surgery to take to the OR for repair of her left femoral neck fracture. Pain control, bowel regimen. PT/OT to evaluate and treat postop. We will place a rehab screen for continued physical and occupational therapy. Replace electrolytes. We will treat the fungus with a topical. The plan was discussed with the attending. Job ID: [id number]
[2019-12-22] MEDS: Acetaminophen 500 MG TAB PO SCH ×2 (18:45→23:27)
[2019-12-22] MEDS ORDERED: CEFAZOLIN 2 GM in Premix Bag 1 BAG IVPB SCH (20:00)
[2019-12-22] MEDS ORDERED: Phenylephrine 10 MG/ML VIAL ONE (20:31)
[2019-12-22] MEDS ORDERED: Promethazine HCl 25 MG/ML VIAL ONE (21:23)
[2019-12-22] MEDS: Gabapentin 100 MG CAP PO SCH (21:50)
[2019-12-22] MEDS: CeleCOXIB 100 MG CAP PO SCH (21:50)
[2019-12-22] MEDS: Nystatin/Triamcinolone Ointment 15 GM TUBE TOP SCH (21:50)
[2019-12-22] MEDS: Senokot S 8.6-50 MG TAB PO SCH (21:50)
[2019-12-22] MEDS ORDERED: Ibuprofen 600 MG TAB PO SCH (22:00)
[2019-12-22] MEDS ORDERED: Morphine 4 MG/ML VIAL SLOW IVP PRN (22:01)
[2019-12-22] MEDS ORDERED: Promethazine HCl 25 MG/ML VIAL IM PRN (22:25)
[2019-12-22] MEDS ORDERED: Promethazine HCl 25 MG/ML VIAL SLOW IVP PRN (22:25)
[2019-12-22] MEDS ORDERED: Ondansetron HCl/PF 4 MG/2 ML Vial IVP PRN (22:25)
--- NOTE | 2019-12-22 23:36 | RAD ---
AP PELVIS: History: Status post hemiarthroplasty left hip. FINDINGS: Left hip prosthesis is noted. Post-operative changes are noted. Components appear adequately position ed. POS: [facility]
--- NOTE | 2019-12-22 23:45 | RAD ---
LEFT HIP ONE VIEW: History: Lateral view obtained post op. Post op follow up. FINDINGS: Post op arthroplasty. Components appear in adequate position and alignment. Post op changes are noted with skin zeynep. POS: [facility]
--- NOTE | 2019-12-22 23:58 | PRG ---
DATE OF SERVICE: 12/22/2019 SUBJECTIVE: The patient was seen this evening postoperatively. She was lying in bed, asleep, with no signs of acute distress. Nursing reported no acute events and pain was controlled postoperatively. OBJECTIVE: VITAL SIGNS: Temperature 98.5, pulse 59, respirations 16, oxygen saturation 100% on room air, and blood pressure 134/60. GENERAL: Well-appearing elderly female, lying in bed, asleep with no signs of acute distress. ASSESSMENT: 1. Status post mechanical fall. 2. Left hip fracture. 3. Left shoulder contusion. 4. Possible lower abdominal skin fungal infection. 5. Enlarged right upper lung nodule. 6. History of hypertension, irregular heartbeat, depression, anxiety, hypothyroidism, and gastroesophageal reflux disease. PLAN: The patient will be on a regular diet. We will discontinue IV fluids after current bag is finished. She will work with Physical and Occupational Therapy tomorrow. She is pending placement at rehab facility. Repeat blood work in the morning. Restart home medications as clinically indicated. Job ID: [id number]
[2019-12-23] MEDS ORDERED: CEFAZOLIN 2 GM in Premix Bag 1 BAG IVPB SCH (01:00)
--- NOTE | 2019-12-23 01:27 | OP ---
DATE OF PROCEDURE: 12/22/2019 PROCEDURE PERFORMED: Left hip hemiarthroplasty, bipolar. PREOPERATIVE DIAGNOSIS: Left femoral neck fracture. POSTOPERATIVE DIAGNOSIS: Left femoral neck fracture. COMPLICATIONS: None. ESTIMATED BLOOD LOSS: 150 mL. ANESTHESIA: General. IMPLANTS: DePuy size 7 basic press-fit [place] stem, size 46 mm bipolar shell, +5 femoral head. BIT SHARPENER: Bryan Gonzalez PA-C. INDICATIONS FOR PROCEDURE: Ms. Arndt is a 79-year-old female, who has fallen and fractured her left femoral neck. She has been indicated for hemiarthroplasty of the hip to restore anatomic alignment and promote healing. The goal is to provide early mobilization. Risks have been reviewed, which to include infection, neurovascular injury, DVT, PE, instability of the hip, and others. DESCRIPTION OF PROCEDURE: Ms. Arndt was identified in the preoperative holding area. Her correct extremity was marked. She was carried to the operating room. She was positioned supine. General anesthesia was induced. A multidisciplinary time-out was performed. The left lower extremity was prepped and draped in sterile fashion. We began the procedure with a posterior approach to the hip. We dissected down through the subcutaneous tissues to the fascia. The fascia was opened. We exposed the underlying short external rotators of the hip. These were subperiosteally divided from the proximal femur. We then performed a capsulotomy. At this point, we removed the femoral head and performed a new osteotomy of the femoral neck. We removed bony fragments from the acetabulum. Next, we thoroughly irrigated with copious lavage. We then began preparation of the femoral canal. The canal was entered. We then lateralized. At this point, we proceeded to ream the canal up to a size 7. We then broached up to a size 7. At this point, after broaching, we trialed. A +5 gave appropriate leg length and stability. We removed our trial components and impacted our final components. Again, the hip was reduced. We then repaired the short external rotators of the hip and the capsule with Ethibond suture through drill holes. We closed the fascia with #2 Vicryl suture and finished a layered closure. A sterile dressing was applied at this point. The patient was taken to the recovery room in good condition without complication. Job ID: [id number]
[2019-12-23] MEDS: traMADol HCl 50 MG TAB PO SCH ×2 (03:23→09:24)
[2019-12-23] MEDS: CEFAZOLIN 2 GM in Premix Bag 1 BAG IVPB SCH ×2 (05:02→13:01)
[2019-12-23 05:33] LABS: #Lymphocytes 0.7 thou/uL (1.20-3.40); #Monocytes 0.6 thou/uL (0.11-0.59); #Neutrophils 8.1 thou/uL (1.40-6.50); %Basophils 0.1 % (0.0-1.0); %Eosinophils 0.3 % (0.0-10.0); %Neutrophils 86.7 % (42.0-75.0); Hemoglobin 10.4 g/dL (12.0-16.0); Mean Corpuscular HGB CONC 32.2 g/dL (32.0-36.0); Mean Corpuscular Hemoglobin 30.6 pg (27.0-31.0); Mean Corpuscular Volume 94.8 fL (78.0-98.0); Mean Platelet Volume 9.3 fL (7.4-10.4); Platelet Count 143 thou/uL (130-400); RBC Distribution Width 12.2 % (11.5-14.5); White Blood Cell (WBC) Count 9.3 thou/uL (4.8-10.8)
[2019-12-23 05:56] LABS: Anion Gap 14 mmol/L (10-20); BUN (Urea Nitrogen) 18 mg/dL (9.8-20.1); Calc. Creatinine Clearance 37 mL/min (70-130); Calcium 8.5 mg/dL (7.8-10.44); Carbon Dioxide 22 mmol/L (23-31); Chloride 107 mmol/L (98-107); Estimated GFR-MDRD 39; Glucose 106 mg/dL (83-110); Magnesium 2.4 mg/dL (1.6-2.6); Potassium 4.7 mmol/L (3.5-5.1); Sodium 138 mmol/L (136-145)
[2019-12-23 06:06] LABS: Phosphorus 5.1 mg/dL (2.3-4.7)
[2019-12-23] MEDS: Acetaminophen 500 MG TAB PO SCH (06:51)
[2019-12-23] MEDS ORDERED: Sodium Chloride 0.9% 1,000 ML IV SCH (08:15)
[2019-12-23] MEDS ORDERED: Levothyroxine Sodium 112 MCG TAB PO SCH (09:00)
[2019-12-23] MEDS: Polyethylene Glycol 3350 17 GM Packet PO SCH (09:22)
[2019-12-23] MEDS: Senokot S 8.6-50 MG TAB PO SCH ×2 (09:23→20:59)
[2019-12-23] MEDS: CeleCOXIB 100 MG CAP PO SCH (09:23)
[2019-12-23] MEDS: Gabapentin 100 MG CAP PO SCH ×3 (09:23→20:59)
[2019-12-23] MEDS: buPROPion 75 MG TAB PO SCH (09:24)
[2019-12-23] MEDS: Escitalopram Oxalate 20 mg Tablet PO SCH (09:24)
[2019-12-23] MEDS: Nystatin/Triamcinolone Ointment 15 GM TUBE TOP SCH ×2 (09:25→21:00)
[2019-12-23] MEDS: Heparin 5,000 UNITS/ML VIAL SC SCH ×2 (09:25→21:00)
--- NOTE | 2019-12-23 12:49 | PRG ---
DATE OF SERVICE: 12/23/2019 SUBJECTIVE: The patient was resting comfortably in bed with her daughter at bedside at the time of evaluation. She denied any acute overnight events. However, she did note that she had difficulty urinating. This has never happened before. A urinary Adams catheter was placed and the patient was able to void appropriately. Since that time, she has had no issues urinating and states that she is passing urine freely into a PureWick device. She denies any headaches, changes in vision, chest pain, difficulty breathing, nausea, vomiting, diarrhea, worsening pain at her left hip or difficulty moving her lower extremities. She stated that she thought that her surgical procedure the night prior went well and that her pain was adequately controlled. OBJECTIVE: VITAL SIGNS: Reveal a temperature of 97.6, pulse 54, respirations 16, oxygen saturation 96% on 2 L nasal cannula, blood pressure 112/64. HEENT: Normocephalic, atraumatic head. Eyes demonstrated PERRLA with extraocular muscles grossly intact. Moist mucous membranes were noted in the nasopharynx and oropharynx. No evidence of erythema, edema, exudates, or ulceration. Hearing was poor, but is at the patient's baseline. She did not have her hearing aid in place at the time of evaluation. NECK: Supple with full range of motion intact. No evidence of lymphadenopathy. CARDIOVASCULAR: Revealed a regular rate and rhythm with no murmurs, clicks, gallops, or rubs. RESPIRATORY: Revealed clear lungs to auscultation bilaterally with no evidence of wheezes, rales, or rhonchi. ABDOMEN: Revealed normoactive bowel sounds x4. No tenderness to palpation and no evidence of organomegaly. No guarding or rigidity are noted. MUSCULOSKELETAL: Revealed a well-healing surgical incision over the left trochanteric region. Minimal strikethrough was noted on the bandage in place. There was no evidence of induration, spreading erythema, or active bleeding. +2 pulses were noted to be at the dorsalis pedis arteries bilaterally. The patient demonstrated warm lower extremities with full range of motion of feet and toes intact. The patient was able to bend her leg without difficulty. SKIN: Revealed a suprapubic erythematous rash with nonraised lesions. No evidence of vesicles was noted. No evidence of excoriations or tracking was noted. No evidence of discharge was noted. LABORATORY DATA: Review of laboratory values on 12/23/2019 indicated a white blood cell count of 9.3, hemoglobin 10.4, hematocrit 32.2, platelet count 143. Chem panel revealed a sodium of 138, potassium 4.7, chloride 107, carbon dioxide 22, BUN 18 , creatinine 1.31, glucose 106, calcium 8.5, magnesium 2.4. Coagulation panel performed on admission revealed a PT of 12.7, INR of 1, APTT of 30.5. Urinalysis performed on admission revealed no evidence of urine protein, urine ketones, urine blood, urine nitrites, urine bilirubin, or urine bacteria. IMAGING STUDIES: Review of postoperative pelvic x-ray revealed left hip prosthesis with postoperative changes, components appeared adequately positioned. Review of postop hip x-ray demonstrated postop arthroplasty, components appear in adequate position and alignment. Postop changes noted with skin zeynep in place. ASSESSMENT: 1. Postop day 1 of left-sided hemiarthroplasty secondary to left-sided femoral neck fracture secondary to mechanical ground level fall. 2. Postoperative pain. 3. Incidental finding of right upper lobe enlarging nodule. 4. Arthritis. 5. Hypertension. 6. Hypothyroidism. 7. Irregular heartbeat. 8. Anxiety and depression. 9. Gastroesophageal reflux disease. PLAN: Today, we will begin to increase ambulation with early mobilization through physical therapy and occupational therapy. We will ensure that pain is adequately controlled. Additionally, due to EDIE noted on review of laboratory values, we will discontinue the patient's home regimen of NSAID and will instead utilize Tylenol and/or Tylenol No.3 for pain control. Consider additional use of tramadol if required. The patient appears to be voiding well and no evidence of urinary retention was noted during the evaluation. We will coordinate with case management and the patient and the patient's family in order to begin long-term planning for rehab/SNF placement following discharge and clearance from Ortho, Physical Therapy, and Occupational Therapy. This plan of action was reviewed with Dr. Rai Nicolas, Trauma during morning rounds. He agrees with the plan as stated above and will personally evaluate the patient later this morning. Job ID: [id number] [facility]
[2019-12-23] MEDS: Acetaminophen/Codeine 30-300mg Tablet PO SCH ×2 (12:58→18:04)
[2019-12-23] MEDS ORDERED: Calcium Carbonate 500 MG ChewTAB ONE ×2 (13:29)
[2019-12-23] MEDS: Acetaminophen 325 MG TAB PO SCH ×2 (13:34→22:40)
[2019-12-23] MEDS ORDERED: Calcium Carbonate 500 MG ChewTAB PO PRN (14:50)
[2019-12-23] MEDS: Acetaminophen/Codeine 30-300mg Tablet PO PRN (16:07)
[2019-12-23] MEDS ORDERED: Hydrocortisone Sod Succ/PF 100 mg/2 ml Vial IVP SCH (17:15)
[2019-12-23] MEDS ORDERED: Sodium Chloride 0.9% 500 ML IV SCH (18:30)
[2019-12-24] MEDS: Acetaminophen/Codeine 30-300mg Tablet PO SCH ×3 (00:22→11:54)
--- NOTE | 2019-12-24 04:48 | PRG ---
DATE OF SERVICE: 12/24/2019 SUBJECTIVE: The patient is currently on the surgical floor. She is status post a left hip hemiarthroplasty. She is postop day 1 from this procedure, which she has tolerated well. She began working with Physical and Occupational Therapy today. She is tolerating a diet. Her pain is controlled. The nurses did not report any issues. OBJECTIVE: VITAL SIGNS: Stable. The patient is afebrile. GENERAL: The patient is resting comfortably in bed. She is asleep when I entered the room. I did not awaken her for exam. She appeared in no distress. Her respirations appear nonlabored. ASSESSMENT: 1. Status post ground level fall. 2. Postop day 1, status post left hip hemiarthroplasty. PLAN: Plan will be to continue supportive care. Encourage physical and occupational therapy and await placement decision. Job ID: [id number]
[2019-12-24 05:57] LABS: Anion Gap 8 mmol/L (10-20); BUN (Urea Nitrogen) 25 mg/dL (9.8-20.1); Calc. Creatinine Clearance 40 mL/min (70-130); Calcium 8.4 mg/dL (7.8-10.44); Carbon Dioxide 25 mmol/L (23-31); Chloride 104 mmol/L (98-107); Estimated GFR-MDRD 43; Glucose 122 mg/dL (83-110); Potassium 4.2 mmol/L (3.5-5.1); Sodium 133 mmol/L (136-145)
[2019-12-24] MEDS ORDERED: Levothyroxine Sodium 112 MCG TAB PO SCH (06:30)
[2019-12-24] MEDS: Acetaminophen 325 MG TAB PO SCH ×2 (06:35→14:01)
[2019-12-24] MEDS ORDERED: Sodium Chloride 0.9% 500 ML IV SCH (07:45)
[2019-12-24] MEDS: Acetaminophen/Codeine 30-300mg Tablet PO PRN ×2 (09:02→16:23)
[2019-12-24] MEDS: Senokot S 8.6-50 MG TAB PO SCH (09:03)
[2019-12-24] MEDS: Gabapentin 100 MG CAP PO SCH ×2 (09:03→14:00)
[2019-12-24] MEDS: buPROPion 75 MG TAB PO SCH (09:03)
[2019-12-24] MEDS: Escitalopram Oxalate 20 mg Tablet PO SCH (09:03)
[2019-12-24] MEDS: Heparin 5,000 UNITS/ML VIAL SC SCH (09:04)
[2019-12-24] MEDS: Hydrocortisone Sod Succ/PF 100 mg/2 ml Vial IVP SCH ×2 (09:04→14:00)
[2019-12-24] MEDS: Polyethylene Glycol 3350 17 GM Packet PO SCH (09:05)
[2019-12-24] MEDS: Nystatin/Triamcinolone Ointment 15 GM TUBE TOP SCH (09:22)
[2019-12-24 15:48] VITALS: BP 119/50; TEMP 99
--- NOTE | 2019-12-25 08:40 | DIS ---
DATE OF ADMISSION: 12/22/2019 DATE OF DISCHARGE: 12/24/2019 RESIDENT: Eren Beatty MD ADMITTING ATTENDING: Mckayla Huerta NP, Trauma. DISCHARGE ATTENDING: Rai Nicolas DO CONSULT: Dr. Romeo Lion, Orthopedic Surgery. PROCEDURES: Pelvic x-ray demonstrating displaced subcapital left femoral neck fracture. Hip x-ray demonstrating displaced left subcapital femoral neck fracture. Chest x-ray demonstrating enlarging spiculated nodular opacity of the right upper lung lobe. Dedicated CT of the thorax recommended no additional acute abnormality noted. Repeat pelvic x-ray demonstrating left hip prosthesis with postoperative changes. Components appear to be adequately positioned. Repeat hip x-ray demonstrating postop arthroplasty components appear in adequate position and alignment. Postop changes noted with skin zeynep in place. PRIMARY DIAGNOSIS: Left femoral neck fracture secondary to ground level mechanical fall, status post left-sided hemiarthroplasty. SECONDARY DIAGNOSES: 1. Incidental finding of right upper lobe enlarging nodule. 2. Arthritis. 3. Hypertension. 4. Hypothyroidism. 5. Irregular heartbeat. 6. History of anxiety and depression. 7. Gastroesophageal reflux disease. 8. History of bronchiectasis. DISCHARGE MEDICATIONS: 1. Tylenol No. 3 two tabs p.o. q.6 hours p.r.n. 2. Cyclobenzaprine 5 mg p.o. t.i.d. 3. Gabapentin 100 mg p.o. t.i.d. 4. Hydrocortisone 20 mg p.o. q.6 hours. DISCONTINUED MEDICATIONS: 1. Acetaminophen 650 mg p.o. q.8 hours. 2. Bupropion 150 mg p.o. daily. 3. Escitalopram 20 mg p.o. daily. 4. Heparin 5000 units subcutaneous b.i.d. 5. Hydrocortisone sodium succinate 25 mg IVP q.6 hours. 6. Lactulose 30 g p.o. 7. Levothyroxine sodium 168 mcg p.o. daily. 8. Metoprolol succinate 50 mg p.o. daily. 9. Morphine sulfate 4 mg slow IVP. 10. Nystatin and triamcinolone acetonide ointment topical b.i.d. 11. Pantoprazole 40 mg p.o. daily. 12. Polyethylene glycol 17 g p.o. daily. 13. Senokot-S two tabs p.o. daily. HISTORY OF PRESENT ILLNESS AND HOSPITAL COURSE: The patient is a 79-year-old female, who presented to the emergency room after a ground level fall. The patient reports that her shoe got caught on the tile while she had breakfast and her hands caused her to fall landing on her left hip. The patient denies hitting her head. The patient denies loss of consciousness. The patient denies any chest pain, shortness of breath, dizziness prior to tripping. The patient had a fall with a skull fracture and subdural hematoma in February 2019, as well as a history of additional lower extremity injuries requiring surgical fixation resulting in periodic instability and reduced mobility. During initial evaluation, the patient was found to have a left-sided femoral neck fracture demonstrated via multiple imaging modalities mentioned elsewhere in this report. Orthopedic Surgery was consulted from the ED and the patient was subsequently transferred to the surgical floor. A left-sided hemiarthroplasty was performed and adequately completed. The postop imaging reports are documented elsewhere in this report. The patient tolerated the procedure well and was subsequently started on physical therapy and occupational therapy. Her condition improved during her hospital stay and her pain was adequately controlled. She did have several episodes of urinary retention most likely secondary to constipation and as such her bowel regimen was increased to include Senokot-S, lactulose, and MiraLAX. Additionally, she was started on a corticosteroid regimen secondary to postoperative adrenal insufficiency demonstrated by multiple lab findings of hyponatremia throughout her hospital stay. She was subsequently prepped for discharge with a planned discharge to an inpatient rehab facility in the local area. Prior to discharge, her vital signs were recorded as temperature 99 degrees, pulse 65 beats per minute, respirations 18 per minute, oxygen saturation 92% on room air, and blood pressure 119/50. Laboratory analysis revealed a white blood cell count of 9.3, hemoglobin 10.4, hematocrit 32.2, and platelet count 143. Chem panel revealed a sodium level of 133, down from 140; potassium level remained constant at 4.2; chloride 104; carbon dioxide 25; BUN 25; creatinine 1.21, down from 1.31; glucose 122; calcium 8.4; phosphorus 5.1; magnesium 2.4; total bilirubin 0.6; AST 29; ALT 20; and alkaline phosphatase 64. Troponins negative x1. Serum total protein 6.4, albumin 4.2, and globulin 2.2. Cortisol 13.9. Urinalysis was within normal limits as well as urine osmolality recorded on 12/24/2019 at approximately 1300 hours at 405. Coag panel revealed a PT of 12.7 , INR of 1, and APTT was 30.5. Prior to discharge, a sputum culture was collected secondary to the patient's new-onset cough and history of bronchiectasis. Initial evaluation of her report revealed that there were 0 to 5 epithelial cells, many white blood cells seen and no organisms present on Gram-stain. DISPOSITION: Stable. DISCHARGE INSTRUCTIONS: 1. Location: Discharged to Inpatient Rehab Facility, [place], [place]. 2. Diet: Heart healthy. 3. Activity: Orthopedic limitations secondary to physical therapy and occupational therapy recommendations. 4. Followup: The patient was encouraged to follow up with Dr. Romeo Lion in 2 to 3 weeks in order to evaluate for postoperative changes. Additionally, the patient was encouraged to follow up with her primary care provider, Dr. Alonso Almeida in 2 to 3 weeks or discuss her most recent hospitalization. The patient was evaluated by Dr. Rai Nicolas on 12/24/2019, and he agrees with the aforementioned discharge summary and previous assessment and plan. Job ID: [id number] [facility]
--- NOTE | 2019-12-26 11:20 | PRG ---
DATE OF SERVICE: 12/24/2019 SUBJECTIVE: The patient was resting comfortably in bed with her daughter at bedside at the time of evaluation. She had no significant complaints; however, she did endorse mild constipation stating that she had not had a bowel movement since her hospitalization began. Additionally, she endorsed multiple episodes of urinary retention overnight that required in-and-out catheterization. Lastly, she endorsed a mildly productive cough with greenish sputum that started approximately 20 minutes prior to evaluation. She denied any headaches, changes in vision, changes in hearing, fevers, nausea, or vomiting. OBJECTIVE: VITAL SIGNS: Revealed a temperature of 98.6, pulse 68, respirations 18 per minute, O2 saturations 93% on room air, blood pressure 111/50. HEENT: Normocephalic, atraumatic head with eyes demonstrating PERRLA. Vision grossly intact. Hearing poor, although this is at the patient's baseline. Moist mucous membranes in the nasopharynx and oropharynx without signs of erythema, edema, exudates, or ulcerations. NECK: No lymphadenopathy could be appreciated. Trachea was midline. CARDIOVASCULAR: Revealed a regular rate and rhythm without murmurs, clicks, gallops, or rubs. RESPIRATORY: Evaluation revealed clear lungs to auscultation bilaterally without wheezes, rales, or rhonchi. GI: Evaluation revealed normoactive bowel sounds x4. No obvious abdominal distention. No tenderness to palpation or organomegaly could be appreciated. MUSCULOSKELETAL: There was a well-healing surgical scar over the patient's left trochanteric region with minimal strikethrough in the bandage. No evidence of erythema, induration, or drainage to be appreciated. The patient was able to move all 4 extremities. : Inspection of the patient's Adams catheter collection bag revealed approximately 200 mL of straw colored urine. No evidence of sediment or blood could be appreciated. LABORATORY ANALYSIS: Revealed a Chem panel demonstrating sodium of 133, potassium 4.2, chloride 104, carbon dioxide 25, BUN 25, creatinine 1.21, glucose 122. A cortisol measurement taken at approximately 1719 hours on 12/13/2019, indicated cortisol levels of 13.9, which was within normal limits. ASSESSMENT: 1. Postoperative day 2 of left-sided hemiarthroplasty secondary to left-sided femoral neck fracture secondary to mechanical ground level fall. 2. Postoperative pain. 3. Incidental finding of right upper lobe enlarging nodule. 4. Arthritis. 5. Hypertension. 6. Hypothyroidism. 7. Irregular heartbeat. 8. Anxiety and depression. 9. Gastroesophageal reflux disease. PLAN: The patient appears to be recovering well from left-sided hemiarthroplasty. Pain is adequately well controlled. Urinary retention and constipation are concerning. We will add lactulose to medication regimen in order to encourage adequate stooling. Anticipate normal voiding to occur following this event. We will collect a sputum sample based on the patient's recent cough and history of bronchiectasis. We will treat accordingly, if bacteria are present. We will continue to administer glucocorticoids q.6 hours due to suspected adrenal insufficiency. Plan for discharge and coordinate with case management for transportation to rehab facility later today or tomorrow afternoon. This patient was evaluated by Dr. Rai Nicolas, Trauma Services during morning rounds, and he agrees with the aforementioned assessment and plan as stated above. Job ID: [id number]
--- NOTE | 2019-12-27 10:22 | EKG ---
Test Reason : Blood Pressure : / mmHG Vent. Rate : 067 BPM Atrial Rate : 067 BPM P-R Int : 118 ms QRS Dur : 072 ms QT Int : 416 ms P-R-T Axes : 057 060 058 degrees QTc Int : 439 ms Normal sinus rhythm with sinus arrhythmia Nonspecific ST and T wave abnormality Abnormal ECG Confirmed by SERGIO HERNANDEZ, FADY ([id number]), senior editor A[place]ANDRIA ACOSTA ([id number]) on 12/27/2019 10:22:31 AM Referred By: Confirmed By:FADY HILL MD
== END 2019-12-24 17:00 | DRG 470 ==
LOC: ERS 12:05 → SURG B 16:25
PROVIDERS: ADMIT Surgery; ATTEND Surgery
PROC: 0SRS0JZ Replacement of Left Hip Joint, Femoral Surface with Synthetic Substitute, Open Approach (ICD-10-PCS; principal; 2019-12-22)
DX: S72.002A Fracture of unspecified part of neck of left femur, initial encounter for closed fracture (principal); E27.40 Unspecified adrenocortical insufficiency; E87.1 Hypo-osmolality and hyponatremia; N17.9 Acute kidney failure, unspecified; I10 Essential (primary) hypertension; M19.90 Unspecified osteoarthritis, unspecified site; E03.9 Hypothyroidism, unspecified; F41.9 Anxiety disorder, unspecified; F32.9 Major depressive disorder, single episode, unspecified; K21.9 Gastro-esophageal reflux disease without esophagitis; R33.9 Retention of urine, unspecified; Z96.652 Presence of left artificial knee joint; S40.012A Contusion of left shoulder, initial encounter; K59.00 Constipation, unspecified; J47.9 Bronchiectasis, uncomplicated; Z88.1 Allergy status to other antibiotic agents; Z88.8 Allergy status to other drugs, medicaments and biological substances; Z90.710 Acquired absence of both cervix and uterus; Z88.2 Allergy status to sulfonamides
CPT/HCPCS: 36415; 71045; 72170; 80048; 80053; 81003; 81015; 82533; 83735; 83935; 84100; 84484; 85025; 85610; 85730; 86850; 86900; 86901; 87070; 87205; 93005; 96374; 96375; 96376; A4353; J0690; J1100; J1644; J1720; J1885; J2001; J2270; J2370; J2405; J2550; J2704; J3010; J3475

== ENCOUNTER 2020-06-29 15:13 | Outpatient (CLI) | payer MEDICARE, BC ==
--- NOTE | 2020-06-30 08:59 | MMO ---
Bilateral MAMMO Bilat Screen [facility]. CLINICAL HISTORY: Patient is 79 years old and is seen for screening. The patient has no family history of breast cancer. The patient has no personal history of cancer. The patient has a history of right Excisional Biopsy in 1956 - benign, right Excisional Biopsy in 1983 - benign and left Excisional Biopsy in 1964 - benign. VIEWS: The views performed were: bilateral craniocaudal with tomosynthesis and bilateral mediolateral oblique with tomosynthesis. FILMS COMPARED: The present examination has been compared to prior imaging studies performed at [facility] on 10/06/2015, 10/24/2016, 01/14/2018 and 01/15/2019. This study has been interpreted with the assistance of computer-aided detection. MAMMOGRAM FINDINGS: There are scattered fibroglandular densities. There are no suspicious masses, suspicious calcifications, or new areas of architectural distortion. IMPRESSION: THERE IS NO MAMMOGRAPHIC EVIDENCE OF MALIGNANCY. A ROUTINE FOLLOW-UP MAMMOGRAM IN 1 YEAR IS RECOMMENDED. THE RESULTS OF THIS EXAM WERE SENT TO THE PATIENT. ACR BI-RADS Category 1 - Negative MAMMOGRAPHY NOTE: 1. A negative mammogram report should not delay a biopsy if a dominant of clinically suspicious mass is present. 2. Approximately 10% to 15% of breast cancers are not detected by mammography. 3. Adenosis and dense breasts may obscure an underlying neoplasm. Reported by: DAVIDSON MUNIZ MD Electonically Signed: [id number]
== END 2020-06-29 15:14 | disposition home or self-care (01) ==
LOC: BICMAMMO 15:13
PROVIDERS: ATTEND Internal Medicine
DX: Z12.31 Encounter for screening mammogram for malignant neoplasm of breast (principal); Z91.89 Other specified personal risk factors, not elsewhere classified
CPT/HCPCS: 77063; 77067

== ENCOUNTER 2020-12-14 11:32 | Outpatient (CLI) | payer MEDICARE, OTHER | END 2020-12-14 11:33 | disposition home or self-care (01) | LOC: BICRAD 11:32 | PROVIDERS: ATTEND Internal Medicine Critical Care Medicine | DX: R06.00 Dyspnea, unspecified (principal) | CPT/HCPCS: 71046 ==

== ENCOUNTER 2021-11-24 13:33 | Outpatient (CLI) | payer MEDICARE, OTHER | END 2021-11-24 13:34 | disposition home or self-care (01) | LOC: BICMAMMO 13:33 | PROVIDERS: ATTEND Internal Medicine Rheumatology | DX: Z12.31 Encounter for screening mammogram for malignant neoplasm of breast (principal); M81.0 Age-related osteoporosis without current pathological fracture; M25.561 Pain in right knee; M25.562 Pain in left knee | CPT/HCPCS: 77063; 77067; 77080 ==

== ENCOUNTER 2021-12-13 11:02 | Outpatient (CLI) | payer MEDICARE, OTHER | END 2021-12-13 11:03 | disposition home or self-care (01) | LOC: RAD 11:02 | PROVIDERS: ATTEND Internal Medicine Critical Care Medicine | DX: R06.00 Dyspnea, unspecified (principal); J98.4 Other disorders of lung | CPT/HCPCS: 71046 ==